=== PATIENT | male | born 1985 | race Caucasian/White ===

== ENCOUNTER 2019-08-18 06:11 | Observation (INO) | payer MEDICAID, OTHER ==
[2019-08-18] MEDS ORDERED: Dextrose 5%-0.9% NaCl 1,000 ML IV SCH (07:15)
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
[2019-08-18] MEDS ORDERED: Iopamidol 612 MG/ML 100 ML Bottle IVPUSH ONE (07:42)
[2019-08-18] MEDS ORDERED: Metoclopramide 10 MG/2 ML SDV IVPUSH ONE (08:44)
[2019-08-18] MEDS ORDERED: HYDROmorphone 0.5 MG/0.5 ML Syringe IVPUSH ONE (08:44)
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
[2019-08-18] MEDS: Acetaminophen 325 MG Tab PO SCH ×2 (10:40→18:22)
--- NOTE | 2019-08-18 11:09 | CR ---
Left hand: 4 views of the left hand were obtained. Comparison: No prior hand exam. Fracture is identified within the base of the 4th metacarpal. Articular extension is seen with minimal displacement. Bony density is noted off the CMC joint of the 5th digit which is well-corticated and believed to be old. No additional fracture is definitely appreciated. Joint spaces are preserved. No additional abnormality is appreciated. Impression: 1. Slightly displaced intra-articular fracture involving the base of the 4th metacarpal. 2. Bony density off the CMC joint of the 5th digit believed to be old. Diagnostic code #3 This report was dictated in MDT
--- NOTE | 2019-08-18 11:15 | CT ---
CT abdomen and pelvis Technique: Multiple axial sections were obtained from above the dome of the diaphragm inferiorly through the pubic symphysis. Intravenous contrast was utilized. No oral contrast has been given. Delayed images were also obtained through the abdomen and pelvis. Comparison: No prior abdominal imaging is available. Findings: Slight atelectasis seen within both lung bases. Liver contains no focal parenchymal abnormality. Vague lucent line is identified within the spleen extending full-thickness through the spleen into a portion of the splenic hilum. No definite pedicle disruption is seen within the spleen. Small amount of blood is noted around the liver with minimal blood around the spleen and moderate blood within the pelvis. Adrenal glands show no nodule. Pancreas is within normal limits. Gallbladder contains no calcified gallstones. Kidneys show symmetric contrast enhancement without hydronephrosis or mass. Aorta shows no aneurysm. No retroperitoneal adenopathy or mesenteric abnormalities are seen. Fat containing umbilical hernia is noted. No pelvic mass or adenopathy is seen. Appendix is not visualized with certainty. Delayed images shows contrast within the distal ureters and within the bladder. Bone window settings were reviewed which shows slight degenerative change within the spine. No acute osseous finding is appreciated. Impression: 1. Bibasilar atelectasis. 2. Probable grade 3 injury with full-thickness splenic laceration. Small amount of fluid presumably blood around the liver and spleen with more focal blood within the pelvis. 3. No additional abnormality is appreciated on CT study of the abdomen and pelvis. Diagnostic code #5 This report was dictated in MDT I agree with preliminary report from [facility], finalized on 08/18/19, 9:34 AM Central Daylight Time
--- NOTE | 2019-08-18 12:05 | PCM.PRNOTE ---
- Free Text/Narrative Note: Date of Service: 08/18/2019 Procedure: incision and drainage of perianal abscess Findings: approximately 30 cc of foul smelling pus drained from left perianal area. Aerobic and anaerobic cultures obtained. Detailed Report: Informed consent was obtained prior to starting the procedure at bedside with plan for local anesthetic. The left perianal area was cleansed with chloraprep. 20 cc 1% lidocaine was injected intradermally over the area of fluctuance and tenderness. An 11-blade scalpel was used to make a 1.5 cm stab incision. A hemostat was inserted into the underlying space, and a large amount of purulent, foul-smelling creamy fluid was released. Wound cultures obtained. Loculations were broken up with the hemostat. The wound was irrigated with sterile saline. Once no more pus was able to be expressed, the wound was packed with 1/4 in. iodoform strip packing. The patient tolerated the procedure well. He is instructed to continue his antibiotics and follow up in the clinic tomorrow for removal of packing.
[2019-08-18] MEDS: oxyCODONE 5 MG Tab PO PRN (20:23)
[2019-08-19] MEDS: Acetaminophen 325 MG Tab PO SCH ×2 (01:25→08:55)
[2019-08-19] MEDS: oxyCODONE 5 MG Tab PO PRN (05:39)
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
== END 2019-08-19 10:06 | disposition home or self-care (01) ==
LOC: JD.ED 06:11 → JD.MS 09:11
PROVIDERS: ADMIT Surgery; ATTEND Surgery
DX: S62.315A Displaced fracture of base of fourth metacarpal bone, left hand, initial encounter for closed fracture (principal); S36.899A Unspecified injury of other intra-abdominal organs, initial encounter; K92.2 Gastrointestinal hemorrhage, unspecified; V49.69XA Unspecified car occupant injured in collision with other motor vehicles in traffic accident, initial encounter; Y92.410 Unspecified street and highway as the place of occurrence of the external cause; Z11.59 Encounter for screening for other viral diseases
CPT/HCPCS: 36415; 73130; 74177; 80053; 81001; 83690; 85025; 85610; 85730; 86140; 86850; 86900; 86901; 87635; 96374; 96375; 99285; A9270; G0378; J1170; J2765; J7042; Q9967; U0002

== ENCOUNTER 2021-04-18 03:42 | Observation (INO) | payer MEDICAID ==
[2021-04-18] MEDS ORDERED: diphenhydrAMINE 50 MG/ML SDV IVPUSH ONE (04:16)
[2021-04-18] MEDS ORDERED: Famotidine 20 MG/2 ML SDV IVPUSH ONE (04:16)
[2021-04-18] MEDS ORDERED: Piperacillin/Tazobactam 4.5 GM in Sodium Chloride 0.9% 100 ML IV ONE (04:18)
[2021-04-18] MEDS ORDERED: methylPREDNISolone Sodium Succinate 125 MG/2 ML SDV IVPUSH ONE (04:19)
[2021-04-18] MEDS ORDERED: Lactated Ringers 1,000 ML IV SCH ×2 (04:30→08:45)
[2021-04-18] MEDS ORDERED: Sodium Chloride 0.9% 10 ML SDV FLUSH ONE (04:38)
[2021-04-18] MEDS ORDERED: Iopamidol 612 MG/ML 100 ML Bottle IVPUSH ONE (04:38)
[2021-04-18 05:27] LABS: CORONAVIRUS COVID-19 NAA NEGATIVE (NEGATIVE)
[2021-04-18] MEDS ORDERED: Clindamycin Phosphate in D5W 900 MG in Premix Bag 1 BAG IV ONE ×2 (07:32)
[2021-04-18] MEDS ORDERED: Dexamethasone 10 MG/ML SDV IVPUSH ONE (07:32)
[2021-04-18] MEDS ORDERED: oxyCODONE 5 MG Tab PO PRN (08:32)
[2021-04-18] MEDS ORDERED: Ondansetron 4 MG/2 ML SDV IV PRN (08:32)
[2021-04-18] MEDS ORDERED: Acetaminophen 325 MG Tab PO PRN (08:32)
[2021-04-18] MEDS ORDERED: fentaNYL 100 MCG/2 ML SDV IVPUSH PRN (08:55)
[2021-04-18] MEDS: NS + KCl 20mEq/L 1,000 ML IV SCH ×2 (10:05→17:10)
[2021-04-18] MEDS ORDERED: cefTRIAXone 2 GM in Sodium Chloride 0.9% 100 ML IV SCH ×2 (14:00)
[2021-04-18] MEDS: Clindamycin Phosphate in D5W 900 MG in Premix Bag 1 BAG IV SCH ×2 (15:00)
[2021-04-19] MEDS: Clindamycin Phosphate in D5W 900 MG in Premix Bag 1 BAG IV SCH ×4 (00:15→08:19)
[2021-04-19] MEDS: NS + KCl 20mEq/L 1,000 ML IV SCH ×2 (00:54→08:28)
[2021-04-19] MEDS ORDERED: methylPREDNISolone Sod Succ 125 MG in Sodium Chloride 0.9% 250 ML IV ONE (08:34)
[2021-04-19] MEDS ORDERED: methylPREDNISolone Sodium Succinate 125 MG/2 ML SDV IVPUSH ONE (09:00)
[2021-04-19] MEDS ORDERED: cefTRIAXone 2 GM in Sodium Chloride 0.9% 100 ML IV SCH (09:45)
== END 2021-04-19 14:00 | disposition home or self-care (01) ==
LOC: JD.ED 03:42 → JD.MS 08:26 → INTOOBSV 08:26
PROVIDERS: ADMIT Internal Medicine; ATTEND Internal Medicine
DX: J02.0 Streptococcal pharyngitis (principal); J05.11 Acute epiglottitis with obstruction; J39.2 Other diseases of pharynx; E86.0 Dehydration; B95.0 Streptococcus, group A, as the cause of diseases classified elsewhere; Z20.822 Contact with and (suspected) exposure to COVID-19; Z79.899 Other long term (current) drug therapy
CPT/HCPCS: 0240U; 36415; 70491; 80048; 80053; 85025; 85027; 86140; 87651; 96365; 96366; 96367; 96375; 96376; 99284; G0378; J0696; J1100; J1200; J2543; J2930; J3480; J3490; J7120; Q9967; 99285